=== PATIENT | female | born 1960 | race Caucasian/White ===

== ENCOUNTER → 2016-12-22 | Outpatient (CLI) | payer OTHER ==
--- NOTE | ~2016-12-22 | CR7 ---
[facility] A Service of [facility] & [facility] [place] RADIOLOGY TEXT RESULTS PATIENT: ROSENDA GUPTA LOCATION: [facility] : 64 UNIT #: [id number] AGE: [address]: Simone Cedillo MD SEX: F ORDER DR: [id number] [facility] [address] [place], [place] [address] [id number] O MR#: [id number] #: [id number] NAME: ROSENDA GUPTA : 1960 SEX: F STUDY DATE/TIME: 12/22/2016 17:13 UNIT: [facility] ROOM: STUDY DESCRIPTION: CR Abdomen Single AP View Attending Physician: Simone Cedillo M.D. Ordering Physician: Simone Cedillo M.D. MEDICAL IMAGING REPORT This report is preliminary unless electronic signature is present EXAM AP of the abdomen. INDICATION Left flank pain for 2 months, left-sided kidney stone. COMPARISON No comparisons available. FINDINGS There is a large stone measuring 1.4 cm in the region of the left kidney. No other radiopaque stones are seen. Bowel gas pattern is nonobstructed. Visualized osseous structures are unremarkable. IMPRESSION Large 1.4 cm stone in the region of the left kidney. Dictated by... Brandin Antunez M.D. THIS IS AN ELECTRONICALLY VERIFIED REPORT Brandin Antunez M.D. at 12/23/2016 4:37 PM ARS/gz TD: 12/23/2016 11:08 JOB #: [id number] MEDICAL IMAGING REPORT Page 1 of 1 COPY
== END | disposition home or self-care (01) ==
LOC: CRAD 16:57
DX: N20.0 Calculus of kidney (principal)
CPT/HCPCS: 74000